=== PATIENT | male | born 1980 | race Asian ===

== ENCOUNTER 2019-03-25 13:58 | Outpatient (CLI) | payer BC ==
--- NOTE | 2019-03-25 15:04 | CT ---
EXAM: CT NECK SOFT TISSUE POST CONTRAST: HISTORY: Mass. Patient feels something along the left aspect of the neck. Patient had previous lymph node dannie fanny. COMPARISON: None. FINDINGS: Brain parenchyma: No pathologic enhancement of the visualized brain parenchyma. Sinuses: Aeration of the paranasal sinuses and mastoid air cells. Orbits: Bilateral ocular lenses are appropriately located. Both globes are intact. Retrobulbar fat is preserved. Symmetric attenuation of the optic nerves and ocular rectus muscles. Nasopharynx:Adequate aeration. No mucosal abnormality. Oral cavity:Aerodigestive tract is patent. No mucosal abnormality. Limited evaluation of the oral cav ity due to dental amalgam artifact. Midline fatty raphae of the tongue is preserved. Hypopharynx: No mucosal abnormality.. Larynx: No mucosal abnormality. Paraspinal muscles: Symmetric attenuation of the paraspinal muscles and symmetric attenuation of the sternocleidomastoid muscles.. Parotid and salivary glands: The right parotid gland and submandibular glands are unremarkable. Along the region of the left parotid gland, there is irregular slightly hyperdense focus with irregular margination measuring 1.2 x 2.3 x at least 4.9 cm. This lesion may be separate from the superficial l obe of the left parotid gland. Intermittent fat plane is noted. Better interrogation with a pre and postcontrast soft tissue neck MRI is recommended. This lesion may correspond to the palpable focus. Thyroid gland: Unremarkable.. Spine: Vertebral body height is maintained. No fracture. No significant central canal stenosis or sig nificant neural foraminal narrowing. Limited evaluation due to technique. Lymph nodes: No evidence of lymphadenopathy by size criteria. Lung apices and upper mediastinum: Dependent atelectatic changes in the lung apices. Unremarkable med iastinum. IMPRESSION: Ill-defined slightly hyperdense focus which appears to be separate from the superficial lobe of the l eft parotid gland. Better interrogation with a pre and postcontrast soft tissue neck MRI is recommended. Given the slightly serpiginous appearance, the possibility of a venal lymphatic malforma tion is raised.
== END 2019-03-25 13:59 | disposition home or self-care (01) ==
LOC: SCSCT 13:58
PROVIDERS: ATTEND Specialist
DX: R22.1 Localized swelling, mass and lump, neck (principal); D50.9 Iron deficiency anemia, unspecified
CPT/HCPCS: 70491

== ENCOUNTER 2020-07-21 21:06 | Emergency (ER) | payer BC | END 2020-07-21 23:13 | disposition home or self-care (01) | LOC: ERS 21:06 | DX: J30.9 Allergic rhinitis, unspecified (principal) | CPT/HCPCS: 99283 ==